=== PATIENT | female | born 1960 | race Caucasian/White ===

== ENCOUNTER 2023-06-19 12:55 | Outpatient (CLI) | payer OTHER ==
--- NOTE | 2023-06-19 17:51 | MRI Report ---
PROCEDURE: MRI brain without contrast INDICATIONS: HEADACHE TECHNIQUE: Multiplanar multisequential MR images of the brain were obtained without contrast COMPARISON: None FINDINGS: CSF Spaces: Basal cisterns are patent. No extra-axial fluid collections. Ventricles are normal in size and shape. Brain: No intracranial masses or hemorrhage. [place]/white matter interface is normal. Brainstem appe ars normal. Diffusion-weighted images shows no evidence of acute infarct. Normal intravascular flow voids are present. Mild atrophy and moderate white matter chronic ischemic change present. Skull and face: Calvarium has normal marrow signal. Orbits appear normal. Sinuses: Sinuses and mastoids are clear. IMPRESSION: Atrophy and chronic ischemic change without acute infarct, hemorrhage or mass lesion Reviewed by: Lalo Carpenter MD on 06/19/2023 4:49 PM [place] Approved by: Lalo Carpenter MD on 06/19/2023 4:49 PM AKST Station ID: [id number]
== END 2023-06-19 12:56 | disposition home or self-care (01) ==
LOC: DI 12:55
PROVIDERS: ATTEND Nurse Practitioner Family
DX: R51.9 Headache, unspecified (principal); G31.89 Other specified degenerative diseases of nervous system; I67.82 Cerebral ischemia

== ENCOUNTER 2023-09-30 09:06 | Outpatient (CLI) | payer OTHER ==
--- NOTE | 2023-09-30 14:03 | Ultrasound Report ---
PROCEDURE: Extremity Soft Tissue Limited INDICATIONS: NODULE LEFT FOOT TECHNIQUE: Real-time scanning was performed of the left foot, with image documentation. COMPARISON: None. FINDINGS: Dorsal aspect of the first digit demonstrates a focus of decreased echogenicity within the subcutaneous fat. It measures 2.0 x 1.0 x 1.4 cm. There is no increased vascularity. IMPRESSION: Nonspecific cystic focus along the dorsal aspect of the first toe. This could represent a ganglion cyst. However, other etiologies cannot be excluded as it is nonspecific on the basis of th is exam. Reviewed by: Ynes Dsouza MD on 09/30/2023 2:01 PM PDT Approved by: Ynes Dsouza MD on 09/30/2023 2:01 PM PDT Station ID: [id number]
== END 2023-09-30 09:07 | disposition home or self-care (01) ==
LOC: DI 09:06
PROVIDERS: ATTEND Nurse Practitioner Family
DX: D48.5 Neoplasm of uncertain behavior of skin (principal)